=== PATIENT | female | born 1950 | race Caucasian/White ===

== ENCOUNTER → 2017-07-11 | Outpatient (CLI) | payer MEDICARE, BC ==
[2016-08-15 09:00] VITALS: BP 122/78
[~2017-07-11] MED LIST: DOXAZOSIN MESYLA8 M1 PO; HCTZ/TRIAMTEREN1 TA2 PO; LEXAPRO 10MG10 MG PO
== END ==
LOC: RAD 13:37
DX: M19.011 Primary osteoarthritis, right shoulder (principal)

== ENCOUNTER → 2018-01-24 | Outpatient (CLI) | payer MEDICARE, BC ==
[2016-08-15 09:00] VITALS: BP 122/78
[2018-01-24 12:59] LABS: EOS # 0.1 (0.04-0.40); EOS % 2.6 % (1.0-5.0); HEMATOCRIT 45.5 % (37.0-47.0); HEMOGLOBIN 15.4 g/dL (12.5-16.0); MEAN CELL VOLUME 106 fl (78-100); MEAN CORPUSCULAR HGB CONC 34 g/dL (33-37); MONO # 0.5 (0.20-0.80); NEU # 3.2 (1.40-6.50); PLATELET COUNT 142 K/mm3 (130-400); RED BLOOD COUNT 4.31 M/mm3 (4.10-5.30); RED CELL DISTRIBUTION WIDTH 13.3 % (11.5-14.5); WHITE BLOOD COUNT 4.6 K/mm3 (4.8-10.8)
[2018-01-24 13:01] LABS: LYMPH# 0.7 (1.50-4.00); MEAN CORPUSCULAR HEMOGLOBIN 36 pg (27-31); MEAN PLATELET VOLUME 12.2 fl (7.4-10.4)
[2018-01-24 13:09] LABS: ALBUMIN 4.2 g/dL (3.5-5.0); BUN/CREATININE RATIO 15.6 (6.0-26.0); CALCIUM 9.3 mg/dL (8.4-10.2); POTASSIUM 3.8 mmol/L (3.6-5.0); TOTAL BILIRUBIN 0.4 mg/dL (0.2-1.3)
[2018-01-24 14:05] LABS: ERYTHROCYTE SEDIMENTATION RATE 25 mm/hr (0-30)
== END ==
LOC: LAB 12:25
PROVIDERS: Internal Medicine
DX: I10 Essential (primary) hypertension (principal); K90.0 Celiac disease; K90.9 Intestinal malabsorption, unspecified; E78.5 Hyperlipidemia, unspecified; E53.8 Deficiency of other specified B group vitamins

== ENCOUNTER → 2019-08-05 | Outpatient (CLI) | payer MEDICARE, BC ==
[2016-08-15 09:00] VITALS: BP 122/78
[2019-08-05 11:54] LABS: POTASSIUM 3.7 mmol/L (3.5-5.1)
[2019-08-05 11:55] LABS: ALBUMIN 4.3 g/dL (3.4-4.8)
[2019-08-05 11:56] LABS: CALCIUM 10.3 mg/dL (8.3-10.5)
[2019-08-05 11:57] LABS: TOTAL PROTEIN 7.7 g/dL (6.2-8.1)
[2019-08-05 11:59] LABS: TOTAL BILIRUBIN 0.3 mg/dL (0.2-1.2)
[2019-08-05 12:01] LABS: HEMOGLOBIN 12.5 g/dL (12.5-16.0); MEAN CELL VOLUME 91 fl (78-100); MEAN CORPUSCULAR HEMOGLOBIN 29 pg (27-31); MEAN CORPUSCULAR HGB CONC 32 g/dL (33-37); PLATELET COUNT 176 K/mm3 (130-400); RED BLOOD COUNT 4.31 M/mm3 (4.10-5.30); RED CELL DISTRIBUTION WIDTH 17.1 % (11.5-14.5); WHITE BLOOD COUNT 3.2 K/mm3 (4.8-10.8)
[2019-08-05 12:19] LABS: MEAN PLATELET VOLUME 12.3 fl (7.4-10.4)
[2019-08-05 12:20] LABS: LYMPHOCYTE 14 % (20-51); MONOCYTE 12 % (3-10); NEUTROPHILS 70 % (42-75)
[2019-08-05 13:09] LABS: ERYTHROCYTE SEDIMENTATION RATE 33 mm/hr (0-30)
== END ==
LOC: LAB 11:28
PROVIDERS: Internal Medicine
DX: Z01.818 Encounter for other preprocedural examination (principal); Z12.11 Encounter for screening for malignant neoplasm of colon; D64.9 Anemia, unspecified; E78.5 Hyperlipidemia, unspecified; I10 Essential (primary) hypertension; K90.9 Intestinal malabsorption, unspecified; M87.052 Idiopathic aseptic necrosis of left femur

== ENCOUNTER → 2019-11-17 | Outpatient (CLI) | payer MEDICARE, BC ==
[2016-08-15 09:00] VITALS: BP 122/78
[2019-11-17 11:17] LABS: HEMATOCRIT 25.1 % (37.0-47.0); MEAN CELL VOLUME 88 fl (78-100); MEAN CORPUSCULAR HEMOGLOBIN 25 pg (27-31); MEAN PLATELET VOLUME 11.9 fl (7.4-10.4); PLATELET COUNT 198 K/mm3 (130-400); RED BLOOD COUNT 2.86 M/mm3 (4.10-5.30); RED CELL DISTRIBUTION WIDTH 14.8 % (11.5-14.5); WHITE BLOOD COUNT 3.6 K/mm3 (4.8-10.8)
[2019-11-17 11:25] LABS: ALBUMIN 4.1 g/dL (3.4-4.8); POTASSIUM 3.5 mmol/L (3.5-5.1)
[2019-11-17 11:27] LABS: CALCIUM 9.8 mg/dL (8.3-10.5)
[2019-11-17 11:28] LABS: TOTAL PROTEIN 7.1 g/dL (6.2-8.1)
[2019-11-17 11:30] LABS: TOTAL BILIRUBIN 0.2 mg/dL (0.2-1.2)
[2019-11-17 11:33] LABS: HEMOGLOBIN 7.1 g/dL (12.5-16.0); MEAN CORPUSCULAR HGB CONC 28 g/dL (33-37)
[2019-11-17 11:35] LABS: MAGNESIUM 1.78 mg/dL (1.60-2.60)
[2019-11-17 11:43] LABS: LYMPHOCYTE 22 % (20-51); MONOCYTE 17 % (3-10); NEUTROPHILS 58 % (42-75)
[2019-11-17 11:44] LABS: MICROCYTOSIS 1+; OVALOCYTES 1+
== END ==
LOC: LAB 11:03
PROVIDERS: Internal Medicine
DX: D64.9 Anemia, unspecified (principal); I10 Essential (primary) hypertension

== ENCOUNTER → 2019-11-18 | Outpatient (CLI) | payer MEDICARE, BC ==
[2016-08-15 09:00] VITALS: BP 122/78
[2019-11-18 08:40] LABS: MEAN CELL VOLUME 87 fl (78-100); MEAN CORPUSCULAR HEMOGLOBIN 25 pg (27-31); MEAN PLATELET VOLUME 11.3 fl (7.4-10.4); PLATELET COUNT 211 K/mm3 (130-400); RED BLOOD COUNT 2.88 M/mm3 (4.10-5.30); RED CELL DISTRIBUTION WIDTH 14.9 % (11.5-14.5); WHITE BLOOD COUNT 3.9 K/mm3 (4.8-10.8)
[2019-11-18 09:08] LABS: HEMOGLOBIN 7.1 g/dL (12.5-16.0); MEAN CORPUSCULAR HGB CONC 28 g/dL (33-37)
[2019-11-18 09:29] LABS: HYPOCHROMIA 1+; LYMPHOCYTE 11 % (20-51); MICROCYTOSIS 1+; MONOCYTE 16 % (3-10); NEUTROPHILS 69 % (42-75); TARGET CELLS 1+
== END ==
LOC: LAB 08:32
PROVIDERS: Internal Medicine
DX: D64.9 Anemia, unspecified (principal)

== ENCOUNTER → 2019-11-20 | Outpatient (CLI) | payer MEDICARE, BC ==
[2016-08-15 09:00] VITALS: BP 122/78
== END ==
LOC: LAB 16:47
DX: Z12.11 Encounter for screening for malignant neoplasm of colon (principal)

== ENCOUNTER → 2020-08-16 | Outpatient (CLI) | payer MEDICARE, BC ==
[2016-08-15 09:00] VITALS: BP 122/78
[2020-08-16 10:39] LABS: HEMATOCRIT 41.2 % (37.0-47.0); HEMOGLOBIN 13.5 g/dL (12.5-16.0); MEAN CELL VOLUME 97 fl (78-100); MEAN CORPUSCULAR HEMOGLOBIN 32 pg (27-31); MEAN CORPUSCULAR HGB CONC 33 g/dL (33-37); PLATELET COUNT 211 K/mm3 (130-400); RED BLOOD COUNT 4.26 M/mm3 (4.10-5.30); RED CELL DISTRIBUTION WIDTH 12.5 % (11.5-14.5)
[2020-08-16 10:42] LABS: MEAN PLATELET VOLUME 12.1 fl (7.4-10.4)
[2020-08-16 10:49] LABS: POTASSIUM 4.1 mmol/L (3.5-5.1); SODIUM 136 mmol/L (136-145)
[2020-08-16 10:50] LABS: ALBUMIN 4.4 g/dL (3.4-4.8)
[2020-08-16 10:51] LABS: CALCIUM 9.9 mg/dL (8.3-10.5)
[2020-08-16 10:52] LABS: GLUCOSE 99 mg/dL (65-105); TOTAL PROTEIN 7.3 g/dL (6.2-8.1)
[2020-08-16 10:53] LABS: CARBON DIOXIDE 27 mmol/L (23-31)
[2020-08-16 10:54] LABS: TOTAL BILIRUBIN 0.4 mg/dL (0.2-1.2)
[2020-08-16 10:57] LABS: AST-SGOT 21 U/L (5-34)
[2020-08-16 10:59] LABS: ALT/SGPT 27 U/L (0-55); MAGNESIUM 1.78 mg/dL (1.60-2.60)
[2020-08-16 11:29] LABS: BAND 2 % (0-10); LYMPHOCYTE 15 % (20-51); MONOCYTE 11 % (3-10); NEUTROPHILS 72 % (42-75)
[2020-08-16 11:40] LABS: ERYTHROCYTE SEDIMENTATION RATE 42 mm/hr (0-30)
== END ==
LOC: LAB 10:10
PROVIDERS: Internal Medicine
DX: I48.91 Unspecified atrial fibrillation (principal); E61.1 Iron deficiency; K90.9 Intestinal malabsorption, unspecified; E78.2 Mixed hyperlipidemia

== ENCOUNTER → 2020-09-21 | Outpatient (CLI) | payer MEDICARE, BC ==
[2016-08-15 09:00] VITALS: BP 122/78
== END ==
LOC: RAD 13:12
DX: M25.462 Effusion, left knee (principal)

== ENCOUNTER → 2021-04-22 | Outpatient (CLI) | payer MEDICARE, BC ==
[2021-04-22 09:19] LABS: BASO # 0.03 (0.02-0.10); EOS % 2.2 % (1.0-5.0); HEMOGLOBIN 14.2 g/dL (12.5-16.0); LYMPH# 0.85 (1.50-4.00); MEAN CELL VOLUME 100 fl (78-100); MEAN CORPUSCULAR HEMOGLOBIN 34 pg (27-31); MEAN CORPUSCULAR HGB CONC 34 g/dL (33-37); MEAN PLATELET VOLUME 11.7 fl (7.4-10.4); MONO # 0.59 (0.20-0.80); NEU # 3.02 (1.40-6.50); PLATELET COUNT 197 K/mm3 (130-400); RED BLOOD COUNT 4.22 M/mm3 (4.10-5.30); RED CELL DISTRIBUTION WIDTH 11.5 % (11.5-14.5); WHITE BLOOD COUNT 4.6 K/mm3 (4.8-10.8)
[2021-04-22 10:53] LABS: ALBUMIN 4.1 g/dL (3.4-4.8); POTASSIUM 3.7 mmol/L (3.5-5.1)
[2021-04-22 10:54] LABS: CALCIUM 9.9 mg/dL (8.3-10.5)
[2021-04-22 10:55] LABS: TOTAL PROTEIN 7.4 g/dL (6.2-8.1)
[2021-04-22 10:57] LABS: TOTAL BILIRUBIN 0.4 mg/dL (0.2-1.2)
== END ==
LOC: LAB 09:05
PROVIDERS: Internal Medicine
DX: K90.9 Intestinal malabsorption, unspecified (principal); E78.2 Mixed hyperlipidemia; I48.91 Unspecified atrial fibrillation

== ENCOUNTER → 2022-08-14 | Outpatient (CLI) | payer MEDICARE, BC | LOC: LAB 17:00 | DX: Z20.822 Contact with and (suspected) exposure to COVID-19 (principal) ==

== ENCOUNTER → 2022-12-28 | Outpatient (CLI) | payer MEDICARE, BC ==
[2022-12-28 09:59] LABS: BASO # 0.02 K/mm3 (0.02-0.10); EOS # 0.09 K/mm3 (0.04-0.40); EOS % 2.7 % (1.0-5.0); HEMATOCRIT 42.1 % (37.0-47.0); HEMOGLOBIN 14.1 g/dL (12.5-16.0); LYMPH# 0.69 K/mm3 (1.50-4.00); MEAN CELL VOLUME 94 fl (78-100); MEAN CORPUSCULAR HEMOGLOBIN 32 pg (27-31); MEAN CORPUSCULAR HGB CONC 34 g/dL (33-37); MEAN PLATELET VOLUME 11.7 fl (7.4-10.4); MONO # 0.42 K/mm3 (0.20-0.80); NEU # 2.06 K/mm3 (1.40-6.50); PLATELET COUNT 171 K/mm3 (130-400); RED BLOOD COUNT 4.47 M/mm3 (4.10-5.30); RED CELL DISTRIBUTION WIDTH 11.7 % (11.5-14.5); WHITE BLOOD COUNT 3.3 K/mm3 (4.8-10.8)
[2022-12-28 10:05] LABS: CALCIUM 9.7 mg/dL (8.3-10.5)
[2022-12-28 10:06] LABS: TOTAL PROTEIN 6.7 g/dL (6.2-8.1)
[2022-12-28 10:08] LABS: TOTAL BILIRUBIN 0.4 mg/dL (0.2-1.2)
[2022-12-28 10:13] LABS: MAGNESIUM 1.88 mg/dL (1.60-2.60)
[2022-12-28 12:02] LABS: ERYTHROCYTE SEDIMENTATION RATE 21 mm/hr (0-30)
[2022-12-29 00:28] LABS: T3 FREE 3.9 pg/mL (1.7-3.7)
== END ==
LOC: LAB 09:28
PROVIDERS: Internal Medicine
DX: I48.91 Unspecified atrial fibrillation (principal); E78.2 Mixed hyperlipidemia; I10 Essential (primary) hypertension; E61.1 Iron deficiency

== ENCOUNTER → 2024-01-22 | Outpatient (CLI) | payer MEDICARE, BC ==
[2024-01-22 08:43] LABS: BASO # 0.02 K/mm3 (0.02-0.10); EOS # 0.11 K/mm3 (0.04-0.40); EOS % 3.4 % (1.0-5.0); HEMATOCRIT 38.7 % (37.0-47.0); HEMOGLOBIN 12.9 g/dL (12.5-16.0); LYMPH# 0.63 K/mm3 (1.50-4.00); MEAN CELL VOLUME 99 fl (78-100); MEAN CORPUSCULAR HEMOGLOBIN 33 pg (27-31); MEAN CORPUSCULAR HGB CONC 33 g/dL (33-37); MEAN PLATELET VOLUME 12.3 fl (7.4-10.4); MONO # 0.41 K/mm3 (0.20-0.80); NEU # 2.07 K/mm3 (1.40-6.50); PLATELET COUNT 145 K/mm3 (130-400); RED BLOOD COUNT 3.91 M/mm3 (4.10-5.30); WHITE BLOOD COUNT 3.2 K/mm3 (4.8-10.8)
[2024-01-22 08:55] LABS: ALBUMIN 3.9 g/dL (3.4-4.8)
[2024-01-22 08:56] LABS: CALCIUM 9.5 mg/dL (8.3-10.5)
[2024-01-22 08:57] LABS: TOTAL PROTEIN 6.5 g/dL (6.2-8.1)
[2024-01-22 08:59] LABS: TOTAL BILIRUBIN 0.4 mg/dL (0.2-1.2)
[2024-01-22 09:04] LABS: MAGNESIUM 1.84 mg/dL (1.60-2.60)
== END ==
LOC: LAB 08:28
PROVIDERS: Internal Medicine
DX: K90.9 Intestinal malabsorption, unspecified (principal); E78.2 Mixed hyperlipidemia; I48.91 Unspecified atrial fibrillation

== ENCOUNTER → 2024-04-08 | Outpatient (CLI) | payer MEDICARE, BC | LOC: RAD 12:51 | DX: M51.16 Intervertebral disc disorders with radiculopathy, lumbar region (principal); M51.17 Intervertebral disc disorders with radiculopathy, lumbosacral region; M48.061 Spinal stenosis, lumbar region without neurogenic claudication; M48.07 Spinal stenosis, lumbosacral region ==